=== PATIENT | female | born 1955 | race African-American/Black ===

== ENCOUNTER 2023-10-12 09:28 | Outpatient (CLI) | payer MEDICAID, SELFPAY ==
--- NOTE | 2023-10-12 11:30 | NEURO_ITS ---
complains of right upper extremity pain, and is concerned about 2.5cm nodule on the dorsum of the wrist joint which is completely mobile and nontender. # Right ulnar neuropathy across the elbow. # No Carpal Tunnel Syndrome. # Normal Needle/EMG exam. Clinical correlation recommended because the patient is concerned about the nodule. Nerve Conduction Studies Anti Sensory Summary Table Stim Site NR Peak (ms) P-T Amp (?V) Site1 Site2 Delta-P (ms) Dist (cm) Cale (m/s) Left Median Anti Sensory (2-3nd Digit) Wrist 3.8 45.5 Wrist 2-3nd Digit 3.8 14.0 37 Wrist 4.0 74.8 Wrist 2-3nd Digit 3.8 14.0 37 Right Median Anti Sensory (2-3nd Digit) Wrist 3.3 46.4 Wrist 2-3nd Digit 3.3 14.0 42 Wrist 3.4 44.3 Wrist 2-3nd Digit 3.3 14.0 42 Left Radial Anti Sensory (Base 1st Digit) Wrist 2.0 43.1 Wrist Base 1st Digit 2.0 0.0 Right Radial Anti Sensory (Base 1st Digit) Wrist 2.6 23.3 Wrist Base 1st Digit 2.6 0.0 Left Ulnar Anti Sensory (5th Digit) Wrist 2.9 48.7 Wrist 5th Digit 2.9 14.0 48 Right Ulnar Anti Sensory (5th Digit) Wrist 2.6 31.2 Wrist 5th Digit 2.6 14.0 54 Motor Summary Table Stim Site NR Onset (ms) O-P Amp (mV) Site1 Site2 Delta-0 (ms) Dist (cm) Cale (m/s) Left Median Motor (Abd Poll Brev) Wrist 3.8 7.0 Elbow Wrist 4.8 28.0 58 Elbow 8.6 4.4 Right Median Motor (Abd Poll Brev) Wrist 3.8 9.4 Elbow Wrist 5.0 29.0 58 Elbow 8.8 6.5 Left Ulnar Motor (Abd Dig Minimi) Wrist 3.0 8.6 A Elbow Wrist 5.2 30.0 58 A Elbow 8.2 7.1 Right Ulnar Motor (Abd Dig Minimi) Wrist 2.7 10.0 A Elbow Wrist 5.9 29.0 49 A Elbow 8.6 8.0 B Elbow Wrist 3.6 21.0 58 B Elbow 6.3 9.1 F Wave Studies NR F-Lat (ms) L-R F-Lat (ms) Left Median (Mrkrs) (Abd Poll Brev) 27.77 0.97 Right Median (Mrkrs) (Abd Poll Brev) 26.80 0.97 Left Ulnar (Mrkrs) (Abd Dig Min) 27.11 0.03 Right Ulnar (Mrkrs) (Abd Dig Min) 27.08 0.03 EMG Side Muscle Nerve Root Ins Act Fibs Amp Dur Recrt Comment Right 1stDorInt Ulnar C8-T1 Nml Nml Nml Nml Nml Right Ext Indicis Radial (Post Int) C7-8 Nml Nml Nml Nml Nml Right Ext Digitorum Radial (Post Int) C7-8 Nml Nml Nml Nml Nml Right BrachioRad Radial C5-6 Nml Nml Nml Nml Nml Right PronatorTeres Median C6-7 Nml Nml Nml Nml Nml Right Abd Poll Brev Median C8-T1 Nml Nml Nml Nml Nml Right ABD Dig Min Ulnar C8-T1 Nml Nml Nml Nml Nml Left 1stDorInt Ulnar C8-T1 Nml Nml Nml Nml Nml Left Ext Indicis Radial (Post Int) C7-8 Nml Nml Nml Nml Nml Left Ext Digitorum Radial (Post Int) C7-8 Nml Nml Nml Nml Nml Left BrachioRad Radial C5-6 Nml Nml Nml Nml Nml Left PronatorTeres Median C6-7 Nml Nml Nml Nml Nml Left Abd Poll Brev Median C8-T1 Nml Nml Nml Nml Nml Left ABD Dig Min Ulnar C8-T1 Nml Nml Nml Nml Nml MTDD
== END 2023-10-12 09:29 | disposition home or self-care (01) ==
LOC: ANHNEURO 09:31
PROVIDERS: PCP Emergency Medicine; Visit Provider Emergency Medicine
DX: G56.21 Lesion of ulnar nerve, right upper limb (principal)
CPT/HCPCS: 95886; 95911

== ENCOUNTER 2023-12-22 01:08 | Day surgery (SDC) | payer OTHER, SELFPAY ==
[2023-11-25 10:15] VITALS: BMI 34.4
[2023-12-22 10:03] VITALS: BP 128/77; PULSE 78; RESP 19; TEMP 36.4; O2SAT 100
[2023-12-22] MEDS: LACTATED RINGERS 1,000 ML 150 ML IV CONT (10:14)
--- NOTE | 2023-12-22 10:14 | P.PNAN_ITS ---
Anes - Initial Pre Proc Eval Procedure: Operation Date: 12/22/23 11:30 Proposed Procedures p Esophagogastroduodenoscopy & Colonoscopy - Rahul Weaver MD Date/Time: 12/22/23 10:14 Surgeon: Rahul Weaver MD Pre Op Diagnosis: Anemia unspecified, GERD without esophagitis Patient Data Age: 68 Gender: F Height: 1.63 m Weight: 86.5 kg Last Vital Signs Temp 97.5 F L 12/22/23 10:03 Pulse 78 12/22/23 10:03 Resp 19 12/22/23 10:03 BP 128/77 12/22/23 10:03 Pulse Ox 100 12/22/23 10:03 O2 Del Method Room Air 12/22/23 10:03 Allergies Allergy/AdvReac Type Severity Reaction Status Date / Time No Known Allergies Allergy Verified 12/22/23 10:02 Home Medications Medication Instructions Recorded Confirmed Type lisinopril 20 1 tablet PO DAILY 11/25/23 12/22/23 History mg-hydrochlorothiazide 12.5 mg tablet Patient hx anesthesia problems: none Family hx anesthesia problems: none Results Review: All pre-operative results and documents have been reviewed as part of the pre- operative evaluation. PMFSH Social History Social History Smoking status: Never smoker Alcohol intake: never Spiritual care concerns: No Anes - Eval Final PreProcedure Day of Procedure 12/22/23 10:14 Patient weight: obese Heart: regular rate and rhythm Lungs: clear to auscultation Airway: Mallampati scale class II Neurological: alert and oriented Last oral intake: >/= 8 hours ASA classification: II Emergent: no Anesthetic plan: proceed Anesthesia type and monitoring: general GIVS and standard monitoring Results Review: All pre-operative results and documents have been reviewed as part of the pre- operative evaluation. Informed Consent: The patient's anesthetic plan and its attendant risks and benefits were discussed with the patient/family/POA. Questions were solicited and answers provided to the satisfaction of the patient/family/POA.
--- NOTE | 2023-12-22 10:29 | PM.HPGS ---
History of Present Illness History of Present Illness Consent: Risks, benefits, and alternatives have been discussed and questions answered. Patient agrees to proceed with procedure. Chief complaint: Anemia unspecified, GERD without esophagitis Narrative: Isaura Peck is a 68 year old female here for first egd and colonoscopy, h/o anemia Review of Systems Review of Systems: All systems reviewed & are unremarkable except as noted in HPI and below PMFSH Past Medical History Medical History (Updated 12/22/23 @ 10:30 by Rahul Weaver MD) Anemia Social History Social History Smoking status: Never smoker Alcohol intake: never Spiritual care concerns: No Meds Home Medications and Allergies Home Medications Medication Instructions Recorded Confirmed Type lisinopril 20 1 tablet PO DAILY 11/25/23 12/22/23 History mg-hydrochlorothiazide 12.5 mg tablet Allergies Allergy/AdvReac Type Severity Reaction Status Date / Time No Known Allergies Allergy Verified 12/22/23 10:02 Vital Signs Vital Signs - 24 hr 12/22/23 10:03 Temperature 97.5 F L Pulse Rate 78 Respiratory Rate 19 Blood Pressure 128/77 Pulse Oximetry 100 Oxygen Delivery Room Air Exam Const: General: comfortable and no acute distress HENMT: Face/Nose/Sinus: Normal nares present Eyes: General: appearance normal, both eyes and all related structures Neck: Neck: no JVD Resp: Auscultation: clear to auscultation bilaterally Cardio: Rate: regular rate Rhythm: regular rhythm GI: Inspection: non-distended GI Palp: Yes Soft to palpation Skin: General skin exam: normal color Neuro: General: gait normal Speech: normal speech Extrem: General: normal to inspection Psych: Mental Status: mental status grossly normal Assessment and Plan Assessment and plan (1) Anemia: Code(s): D64.9 - Anemia, unspecified Status: Acute Assessment and Plan: egd and colonoscopy
--- NOTE | 2023-12-22 10:38 | SUR.OPER ---
EGD [id number]. Colon start time 1042.
[2023-12-22 10:52] VITALS: BP 86/38; PULSE 70; RESP 19; O2SAT 97
[2023-12-22 11:02] VITALS: BP 93/53; PULSE 71; RESP 20; O2SAT 99
[2023-12-22 11:12] VITALS: BP 110/62; PULSE 60; RESP 15; O2SAT 99
== END 2023-12-22 11:29 | disposition home or self-care (01) ==
PROVIDERS: PCP Emergency Medicine; Referring Provider Emergency Medicine; Visit Provider Internal Medicine Gastroenterology
PROC: 0DJ08ZZ Inspection of Upper Intestinal Tract, Via Natural or Artificial Opening Endoscopic (ICD-10-PCS; CPT 43235; principal; 2023-12-22 11:30)
DX: Z12.11 Encounter for screening for malignant neoplasm of colon (principal); D12.5 Benign neoplasm of sigmoid colon; K29.50 Unspecified chronic gastritis without bleeding; D64.9 Anemia, unspecified; K21.9 Gastro-esophageal reflux disease without esophagitis; E66.9 Obesity, unspecified; Z68.32 Body mass index [BMI] 32.0-32.9, adult; K64.8 Other hemorrhoids
CPT/HCPCS: 43239; 45380; 88305; 88342; J2704; J7120

== ENCOUNTER 2024-02-24 08:26 | Outpatient (CLI) | payer OTHER, SELFPAY ==
--- NOTE | ~2024-02-24 | MM_ITS ---
EXAMINATION: MM screening nan BI w [facility] HISTORY: Screening TECHNIQUE: Craniocaudal and mediolateral oblique 3-D tomosynthesis images were obtained and synthetic 2-D images were generated. CAD analysis was submitted and interpreted. COMPARISON: No prior mammogram is available for comparison at this institution. BREAST PARENCHYMAL COMPOSITION: Not dense: There are scattered areas of fibroglandular density. FINDINGS: There is no evidence of suspicious mass, calcification, or architectural distortion to sugg est malignancy in either breast. There has been no suspicious interval change. IMPRESSION: 1. No mammographic evidence of malignancy. 2. Recommend routine screening mammography in one year. BI-RADS Category 1: Negative Reviewed, dictated and finalized at location B.
--- NOTE | ~2024-02-24 | DEXA_ITS ---
Bone Density Report Name: YESI HILL Age: 68 Sex: Female Ethnicity: White Date of : 1955 Indication: postmenopausal; screening for osteoporosis; Referring Provider: BELÉN LARSON Study: Bone densitometry was performed. Exam Date: February 24, 2024 Accession number: [id number] Bone Density: Region BMD T-score Z-score Classification AP Spine(L1-L4) 1.181 1.2 3.1 Normal Femoral Neck (Left) 1.028 1.6 3.2 Normal Total Hip (Left) 1.141 1.6 2.9 Normal Femoral Neck (Right) 1.063 1.9 3.5 Normal Total Hip (Right) 1.154 1.7 3.0 Normal Total Hip Mean 1.148 1.7 3.0 Normal World Health Organization criteria for BMD impression classify patients as: Normal (T-score at or above -1.0), Osteopenia (T-score between -1.0 and -2.5), or Osteoporosis (T-score at or below -2.5). 10-year Fracture Risk: FRAX not reported because: All T-scores for Spine Total, Hip Total, Femoral Neck at or above -1.0 Clinical Information Provided by Patient: Patient maximum height was 62 Menopause Age: 47 No regular weight bearing exercise Drinks caffeinated beverages Onset of menses at age 15 Number of children 7 Impression: The patient has normal bone mass. Discussion: LOW RISK OF FRACTURE; BONE DENSITY IS WELL ABOVE THE MINIMUM DESIRABLE LEVEL AND ABOVE AVERAGE FOR AGE AND SEX AT ALL SKELETAL SITES TESTED. This person's bone density is above expected limits for age and sex. This is rarely clinically significant, but should be pursued if there are significant musculoskeletal complaints. The patient should follow a healthful lifestyle (good nutrition with adequate calcium and vitamin D, and appropriate weight-bearing exercise). Follow-Up: Consider repeating this study in 5 years or sooner if there is some new clinical indication. Reported by: NADEEM on 02/24/2024 8:59:00 AM. Reviewed, dictated and finalized at location [facility]
== END 2024-02-24 08:27 | disposition home or self-care (01) ==
LOC: ANHIMG 08:28
PROVIDERS: PCP Emergency Medicine; Visit Provider Emergency Medicine
DX: Z12.31 Encounter for screening mammogram for malignant neoplasm of breast (principal); Z78.0 Asymptomatic menopausal state
CPT/HCPCS: 77063; 77067; 77080